=== PATIENT | male | born 1990 | race American Indian/Alaskan Native ===

== ENCOUNTER 2018-03-06 08:05 | Outpatient (CLI) | payer MEDICARE ==
[2018-03-06] MEDS ORDERED: XYLOCAINE TOPICAL 4% TP ONE (10:13)
== END 2018-03-06 08:06 | disposition home or self-care (01) ==
LOC: WOUND 08:05
PROVIDERS: ATTEND Surgery
DX: T81.89XA Other complications of procedures, not elsewhere classified, initial encounter (principal); E11.621 Type 2 diabetes mellitus with foot ulcer; L97.522 Non-pressure chronic ulcer of other part of left foot with fat layer exposed; Y83.8 Other surgical procedures as the cause of abnormal reaction of the patient, or of later complication, without mention of misadventure at the time of the procedure; Y92.89 Other specified places as the place of occurrence of the external cause
CPT/HCPCS: 11042; 11045; 97605; G0463

== ENCOUNTER 2018-03-11 08:39 | Outpatient (CLI) | payer MEDICARE ==
[2018-03-11 09:52] LABS: Blood Urea Nitrogen 13 mg/dL (9-20)
--- NOTE | 2018-03-11 15:32 | Magnetic Resonance Report ---
MR LOWER EXTREMITY NON-JOINT LEFT WITHOUT CONTRAST HISTORY: Non-pressure chronic ulcer of other part of left foot. TECHNIQUE: Multisequence, multiplanar MRI without IV gadolinium. FINDINGS: There is abnormal bone marrow edema and decreased T1 signal in the distal metatarsals 3, 4 and 5. Abnormal signal is also identified in the proximal phalanxes of toes 3 and 5. These findings are suggestive of osteomyelitis. The remaining bony structures are unremarkable. There is mild nonspecific edema throughout the muscles of the left foot and subcutaneous tissues on the dorsum of the foot consistent with myositis and cellulitis. No focal abscess is appreciated on noncontrast MRI. The musculotendinous structures and plantar fascia are grossly intact. IMPRESSION: Findings suspicious for osteomyelitis of distal metatarsals 3, 4 and 5 and toes 3 and 5. Cellulitis. Myositis. No focal abscess is identified.
--- NOTE | 2018-03-12 10:19 | Vascular Lab Report ---
LOWER EXTREMITY ARTERIAL DUPLEX: REASON FOR EXAM: Chronic left foot ulcer. COMMENTS ON THE RIGHT: Triphasic waveforms are seen proximally. Triphasic waveforms are seen distally. No significant velocity gradients are identified. No significant plaque is identified. Findings are consistent with normal perfusion. Findings are consistent with the ability to heal distal wounds. COMMENTS ON THE LEFT: Triphasic waveforms are seen proximally. Monophasic waveforms are seen distally. No significant velocity gradients are identified. No significant plaque is identified. Findings are consistent with mildly abnormal perfusion. Findings are potentially inconsistent with the ability to heal distal wounds. IMPRESSION: RIGHT: Essentially normal arterial flow. LEFT:Monophasic flow seen in the distal tibial vessels. Consider further evaluation.
== END 2018-03-11 08:40 | disposition home or self-care (01) ==
LOC: VAS 08:39
PROVIDERS: ATTEND Surgery
DX: E11.621 Type 2 diabetes mellitus with foot ulcer (principal); L97.522 Non-pressure chronic ulcer of other part of left foot with fat layer exposed; I12.0 Hypertensive chronic kidney disease with stage 5 chronic kidney disease or end stage renal disease; E11.22 Type 2 diabetes mellitus with diabetic chronic kidney disease; N18.6 End stage renal disease; M60.872 Other myositis, left ankle and foot; I25.10 Atherosclerotic heart disease of native coronary artery without angina pectoris; J44.9 Chronic obstructive pulmonary disease, unspecified; G47.30 Sleep apnea, unspecified; K21.9 Gastro-esophageal reflux disease without esophagitis; E66.9 Obesity, unspecified; Z95.0 Presence of cardiac pacemaker
CPT/HCPCS: 36415; 82565; 84520; 93925

== ENCOUNTER 2018-03-15 09:04 | Outpatient (CLI) | payer MEDICARE ==
[2018-03-15] MEDS ORDERED: XYLOCAINE TOPICAL 4% TP ONE ×2 (09:20→10:14)
[2018-03-15] MEDS ORDERED: SILVER NITRATE TP ONE (10:25)
[2018-03-18] MEDS ORDERED: SILVER NITRATE TP ONE (15:41)
== END 2018-03-15 09:05 | disposition home or self-care (01) ==
LOC: WOUND 09:04
PROVIDERS: ATTEND Surgery
DX: T81.89XD Other complications of procedures, not elsewhere classified, subsequent encounter (principal); E11.621 Type 2 diabetes mellitus with foot ulcer; L97.511 Non-pressure chronic ulcer of other part of right foot limited to breakdown of skin; L97.522 Non-pressure chronic ulcer of other part of left foot with fat layer exposed; Y83.8 Other surgical procedures as the cause of abnormal reaction of the patient, or of later complication, without mention of misadventure at the time of the procedure
CPT/HCPCS: 82962; 97605

== ENCOUNTER 2018-04-05 13:01 | Outpatient (CLI) | payer MEDICARE ==
[2018-04-05] MEDS ORDERED: XYLOCAINE TOPICAL 4% TP ONE (13:50)
== END 2018-04-05 13:02 | disposition home or self-care (01) ==
LOC: WOUND 13:01
PROVIDERS: ATTEND Surgery
DX: T81.89XD Other complications of procedures, not elsewhere classified, subsequent encounter (principal); E11.621 Type 2 diabetes mellitus with foot ulcer; L97.511 Non-pressure chronic ulcer of other part of right foot limited to breakdown of skin; L97.522 Non-pressure chronic ulcer of other part of left foot with fat layer exposed; Y83.8 Other surgical procedures as the cause of abnormal reaction of the patient, or of later complication, without mention of misadventure at the time of the procedure
CPT/HCPCS: 82962

== ENCOUNTER → 2018-04-24 | Outpatient (CLI) | payer MEDICARE ==
[~2018-04-24] MED LIST: XYLOCAINE TOPICAL 4% TP ONE
== END | disposition home or self-care (01) ==
LOC: WOUND 08:18
PROVIDERS: ATTEND Surgery
DX: T81.89XD Other complications of procedures, not elsewhere classified, subsequent encounter (principal); E11.621 Type 2 diabetes mellitus with foot ulcer; L97.522 Non-pressure chronic ulcer of other part of left foot with fat layer exposed; Y83.8 Other surgical procedures as the cause of abnormal reaction of the patient, or of later complication, without mention of misadventure at the time of the procedure

== ENCOUNTER 2018-12-17 16:11 | Inpatient (IN) | payer MEDICARE ==
[2018-12-17] MEDS ORDERED: NACL 0.9% 1000 ML IV ONE (17:41)
[2018-12-17] MEDS ORDERED: VANCOMYCIN 2,000 MG in NACL 0.9% 500 ML 500 ML IV ONE (17:41)
--- NOTE | 2018-12-17 17:57 | Emergency Department Report ---
ED General Adult HPI - General Chief complaint: Hyperglycemia Stated complaint: HIGH BLOOD SUGAR Time Seen by Provider: 12/17/18 17:25 Source: patient, EMS (ems notes not available at time of chart dictation), RN notes reviewed, old records reviewed Mode of arrival: Stretcher Limitations: Physical Limitation - History of Present Illness Initial comments: This is a 28-year-old gentleman. The patient is not known to this provider previously. Patient has a past medical history of diabetes, chronic bilateral feet wounds, MRI confirmed osteomyelitis of the left foot, from Summer 2017, reportedly supposed to be on multiple insulins and metformin, but currently is not taking his medications. Patient presents to the emergency room with a complaint of left foot pain, redness, swelling and discharge. The symptoms haven't present for 2 months. They are constant. They do not radiate anywhere. I do not have exacerbating or relieving factors. Positive subjective chills, no documented fevers, currently, no headache, neck pain, chest pain, abdominal pain or short of breath. He is not quite sure why he came in today. He was supposed to follow up with outpatient wound care and general surgery, Dr. Donnelly, but he reports that he has not followed up since the summer. He denies urinary symptoms, but reports that he is quite thirsty. -: Gradual, month(s) Location: left, lower extremity Radiation: non-radiation Severity scale (0 -10): 0 (patient denies physical pain at this time) Consistency: constant Improves with: none Worsens with: none - Related Data Previous Rx's Medication Instructions Recorded Last Taken Type Amoxicillin/Potassium Clav 1 each PO BID 14 Days tablet 03/01/18 Unknown Rx [Augmentin 875-125 Tablet] HYDROcodone/APAP 5-325 [[place] 1 each PO Q6H PRN #12 tablet 03/01/18 Unknown Rx 5-325 mg TAB] Insulin Glargine [Lantus VIAL] 16 units SUB-Q QHS #1 vial 03/01/18 Unknown Rx Allergies Allergy/AdvReac Type Severity Reaction Status Date / Time No Known Allergies Allergy Unverified 02/24/18 18:11 ED Review of Systems ROS: Stated complaint: HIGH BLOOD SUGAR Other details as noted in HPI Constitutional: chills. denies: fever Eyes: denies: eye discharge ENT: denies: epistaxis Respiratory: denies: cough Cardiovascular: denies: chest pain Endocrine: increased thirst Gastrointestinal: denies: abdominal pain Genitourinary: denies: dysuria Musculoskeletal: joint swelling, arthralgia, myalgia Skin: rash, change in color. denies: lesions Neurological: weakness Psychiatric: anxiety ED Past Medical Hx - Past Medical History Previous Medical History?: Yes Hx Hypertension: Yes Hx CVA: No Hx Heart Attack/AMI: No Hx Congestive Heart Failure: No Hx Diabetes: Yes Hx Deep Vein Thrombosis: No Hx Pulmonary Embolism: No Hx GERD: No Hx Liver Disease: No Hx Renal Disease: No Hx of Cancer: No Hx Sickle Cell Disease: No Hx Arthritis: No Hx Headaches / Migraines: No Hx Seizures: No Hx Kidney Stones: No Hx Psychiatric Treatment: No Hx Asthma: No Hx COPD: No Hx Tuberculosis: No Hx Dementia: No Hx HIV: No Additional medical history: left lower leg wounds - Surgical History Past Surgical History?: Yes Hx Coronary Stent: No Hx Open Heart Surgery: No Hx Pacemaker: No Hx Internal Defibrillator: No Hx Cholecystectomy: No Hx Appendectomy: No Hx Breast Surgery: No Additional Surgical History: skin debridement - Social History Smoking Status: Never Smoker Substance Use Type: None - Medications Home Medications: Home Medications Medication Instructions Recorded Confirmed Last Taken Type Amoxicillin/Potassium Clav 1 each PO BID 14 Days tablet 03/01/18 Unknown Rx [Augmentin 875-125 Tablet] HYDROcodone/APAP 5-325 [[place] 1 each PO Q6H PRN #12 tablet 03/01/18 Unknown Rx 5-325 mg TAB] Insulin Glargine [Lantus VIAL] 16 units SUB-Q QHS #1 vial 03/01/18 Unknown Rx ED Physical Exam - General Limitations: No Limitations General appearance: alert, in no apparent distress - Head Head exam: Present: atraumatic, normocephalic - Eye Eye exam: Present: normal appearance - ENT ENT exam: Present: normal exam, normal orophraynx, mucous membranes dry, normal external ear exam - Neck Neck exam: Present: normal inspection, full ROM. Absent: tenderness, me ningismus - Respiratory Respiratory exam: Present: normal lung sounds bilaterally. Absent: respiratory distress - Cardiovascular Cardiovascular Exam: Present: normal rhythm, tachycardia, normal heart sounds. Absent: systolic murmur, diastolic murmur, rubs, gallop - GI/Abdominal GI/Abdominal exam: Present: soft. Absent: distended, tenderness, guarding, rebound, rigid, pulsatile mass - Rectal Rectal exam: Present: deferred - Extremities Exam Extremities exam: Present: full ROM (there is an ulcerated lesion noted on the plantar aspect of the right great toe. There is left toe redness, streaking, w armth, and puslike discharge. No crepitus is appreciated.), other (2+ pulses noted in the bilateral upper, lower extremities. Compartments soft. No long bony tenderness. The pelvis is stable.). Absent: pedal edema, calf tenderness - Back Exam Back exam: Present: normal inspection, full ROM. Absent: paraspinal tenderness, vertebral tenderness - Neurological Exam Neurological exam: Present: alert, other (Extraocular movements intact. Tongue midline. No facial droop. Facial sensation intact to light touch in the V1, V2, V3 distribution bilaterally. 5 and 5 strength in 4 extremities.. Sensation is intact to light touch in 4 extremities.). Absent: motor sensory deficit - Psychiatric Psychiatric exam: Present: anxious - Skin Skin exam: Present: warm, rash, erythema ED Course Vital Signs 12/17/18 12/17/18 12/17/18 16:29 16:45 18:41 Temperature 98.1 F Pulse Rate 98 H 97 H Respiratory 21 15 18 Rate Blood Pressure 120/79 120/79 Blood Pressure 120/79 [Right] O2 Sat by Pulse 99 99 98 Oximetry 12/17/18 12/17/18 12/17/18 18:45 18:46 19:00 Temperature Pulse Rate 93 H 98 H 97 H Respiratory 17 14 19 Rate Blood Pressure 146/87 136/87 Blood Pressure 146/87 [Right] O2 Sat by Pulse 97 99 98 Oximetry - Consultations Consultation #1: 12/17/18 19:56 Dr. Strauss, ICU physician, is agreeable to placement to the intensive care unit. ED Medical Decision Making - Lab Data Result diagrams: 12/17/18 17:57 12/17/18 20:11 Vital Signs 12/17/18 12/17/18 12/17/18 16:29 16:45 18:41 Temperature 98.1 F Pulse Rate 98 H 97 H Respiratory 21 15 18 Rate Blood Pressure 120/79 120/79 Blood Pressure 120/79 [Right] O2 Sat by Pulse 99 99 98 Oximetry 12/17/18 12/17/18 12/17/18 18:45 18:46 19:00 Temperature Pulse Rate 93 H 98 H 97 H Respiratory 17 14 19 Rate Blood Pressure 146/87 136/87 Blood Pressure 146/87 [Right] O2 Sat by Pulse 97 99 98 Oximetry Lab Results 12/17/18 12/17/18 12/17/18 Range/Units 16:49 17:57 17:57 WBC 8.4 (4.5-11.0) K/mm3 RBC 3.71 (3.65-5.03) M/mm3 Hgb 9.3 L (11.8-15.2) gm/dl Hct 28.8 L (35.5-45.6) % MCV 78 L (84-94) fl MCH 25 L (28-32) pg MCHC 32 (32-34) % RDW 13.0 L (13.2-15.2) % Plt Count 753 H (140-440) K/mm3 Lymph % (Auto) 18.0 (13.4-35.0) % [place] % (Auto) 5.7 (0.0-7.3) % Eos % (Auto) 1.0 (0.0-4.3) % Baso % (Auto) 1.1 (0.0-1.8) % Lymph # 1.5 (1.2-5.4) K/mm3 [place] # 0.5 (0.0-0.8) K/mm3 Eos # 0.1 (0.0-0.4) K/mm3 Baso # 0.1 (0.0-0.1) K/mm3 Seg Neutrophils % 74.2 H (40.0-70.0) % Seg Neutrophils # 6.3 (1.8-7.7) K/mm3 ESR 74 (0-20) mm/Hr PT 13.3 (12.2-14.9) Sec. INR 0.95 (0.87-1.13) APTT 35.4 (24.2-36.6) Sec. Sodium (137-145) mmol/L Potassium (3.6-5.0) mmol/L Chloride (98-107) mmol/L Carbon Dioxide (22-30) mmol/L Anion Gap mmol/L BUN (9-20) mg/dL Creatinine (0.8-1.5) mg/dL Estimated GFR ml/min BUN/Creatinine Ratio % Glucose (75-100) mg/dL POC Glucose > 500 H (70-105) Lactic Acid (0.7-2.0) mmol/L Calcium (8.4-10.2) mg/dL Magnesium (1.7-2.3) mg/dL Total Bilirubin (0.1-1.2) mg/dL AST (5-40) units/L ALT (7-56) units/L Alkaline Phosphatase (35-129) units/L Total Creatine Kinase (55-170) units/L C-Reactive Protein (0.00-1.30) mg/dL Total Protein (6.3-8.2) g/dL Albumin (3.9-5) g/dL Albumin/Globulin Ratio % 12/17/18 12/17/18 12/17/18 Range/Units 17:57 17:57 17:57 WBC (4.5-11.0) K/mm3 RBC (3.65-5.03) M/mm3 Hgb (11.8-15.2) gm/dl Hct (35.5-45.6) % MCV (84-94) fl MCH (28-32) pg MCHC (32-34) % RDW (13.2-15.2) % Plt Count (140-440) K/mm3 Lymph % (Auto) (13.4-35.0) % [place] % (Auto) (0.0-7.3) % Eos % (Auto) (0.0-4.3) % Baso % (Auto) (0.0-1.8) % Lymph # (1.2-5.4) K/mm3 [place] # (0.0-0.8) K/mm3 Eos # (0.0-0.4) K/mm3 Baso # (0.0-0.1) K/mm3 Seg Neutrophils % (40.0-70.0) % Seg Neutrophils # (1.8-7.7) K/mm3 ESR (0-20) mm/Hr PT (12.2-14.9) Sec. INR (0.87-1.13) APTT (24.2-36.6) Sec. Sodium 130 L (137-145) mmol/L Potassium 4.9 (3.6-5.0) mmol/L Chloride 89.3 L (98-107) mmol/L Carbon Dioxide 29 (22-30) mmol/L Anion Gap 17 mmol/L BUN 34 H (9-20) mg/dL Creatinine 2.1 H (0.8-1.5) mg/dL Estimated GFR 45 ml/min BUN/Creatinine Ratio 16 % Glucose 578 H* (75-100) mg/dL POC Glucose (70-105) Lactic Acid 0.80 (0.7-2.0) mmol/L Calcium 9.2 (8.4-10.2) mg/dL Magnesium 2.00 (1.7-2.3) mg/dL Total Bilirubin 0.20 (0.1-1.2) mg/dL AST 9 (5-40) units/L ALT 8 (7-56) units/L Alkaline Phosphatase 101 (35-129) units/L Total Creatine Kinase 52 L (55-170) units/L C-Reactive Protein 16.20 H (0.00-1.30) mg/dL Total Protein 8.8 H (6.3-8.2) g/dL Albumin 2.7 L (3.9-5) g/dL Albumin/Globulin Ratio 0.4 % - Radiology Data Radiology results: pending, report reviewed Print Report Referring Physician: LISA ROMERO Patient Name: SHABBIR VELÁZQUEZ Date of : 1990 Sex: Male Report Date: 2018-12-17 Report Status: [place] [address] Cat Scan Report Signed Patient: SHABBIR VELÁZQUEZ MR#: [id number] : 1990 Acct:[id number] Age/Sex: 28 / M ADM Date: 12/17/18 Loc: CC1 [id number]: ETELVINA CHAVEZ MD Ordering Physician: LISA ROMERO MD Date of Service: 12/17/18 Procedure(s): CT lower extremity LT wo con Accession Num sarah beth(s): [id number] cc: LISA ROMERO MD PROCEDURE: CT LOWER EXTREMITY LT WO CON HISTORY: left foot cellulitis ingection FINDINGS: Unenhanced CT of the left foot and ankle and more acquired. Data was reformatted into the sagittal and coronal planes. On the left, there is subcutaneous stranding of the soft tissues of the left ankle and dorsum of the left foot, consistent with cellulitis. No abscess is seen. There is destruction of the left first distal phalanx and erosion of the distal aspect of the first proximal phalanx, consistent with osteomyelitis. No evidence of cellulitis or osteomyelitis is seen in the right foot or right ankle. IMPRESSION: Osteomyelitis of first distal phalanx and of the distal aspect of the left first proximal phalanx Cellulitis of left ankle and left foot No evidence of cellulitis or osteomyelitis is seen in the right foot This document is electronically signed by See Cooney MD., December 17 2018 08:54:57 PM ET Transcribed By: JAZMINE Dictated By: SEE COONEY MD Electronically Authenticated By: SEE COONEY MD Signed Date/Time: 12/17/182056 DD/ 17 TD/TT: 12/17/182017 - Medical Decision Making Differential diagnoses, including not limited to: Diabetic ketoacidosis, hyperos molar state, dehydration, cellulitis, osteomyelitis, myositis, medication noncompliance, renal insufficiency Assessment and plan: 36-year-old gentleman with sugar of almost 600, acute renal insufficiency, left great foot, toe redness, warmth, discharge, outpatient history of MRI confirmed osteomyelitis, noncompliant with follow-up, noncompliant with diabetic medications. We will resuscitate the patient according to the sepsis pathway empirically. He will be given appropriate antibiotics. Blood cultures will be obtained. Wound care consult has been obtained at the request of the consulting general surgeon, Dr. Donnelly, who agrees to follow in consultation. He will be given insulin and fluids for his hyperglycemia. May have pseudohyponatremia, secondary to hyperglycemia, corrected sodium [id number] according to calc, corrected anion gap, is 23, accounting for albumin Venous pH will be ordered. Case is presented to the Hospital physician, Dr. Stephy Ga, who accepts on behalf of Dr CHAVEZ Critical Care Time: Yes Critical care time in (mins) excluding proc time.: 45 Critical care attestation.: If time is entered above; I have spent that time in minutes in the direct care of this critically ill patient, excluding procedure time. ED Disposition Clinical Impression: Cellulitis of foot, left, DKA (diabetic ketoacidoses), GERHARD (acute kidney injury) Disposition: DC-09 OP ADMIT IP TO THIS HOSP Is pt being admited?: Yes Condition: Serious
[2018-12-17] MEDS ORDERED: VANCOMYCIN PHARMACY TO DOSE IV SCH (18:00)
[2018-12-17] MEDS ORDERED: ZOSYN/NS 4.5GM/100ML 4.5 GM/100 ML VIAL IV SCH (18:00)
[2018-12-17 18:28] LABS: Basophils # (Auto) 0.1 K/mm3 (0.0-0.1); Basophils % (Auto) 1.1 % (0.0-1.8); Eosinophils # (Auto) 0.1 K/mm3 (0.0-0.4); Hematocrit 28.8 % (35.5-45.6); Hemoglobin 9.3 gm/dl (11.8-15.2); Lymphocytes # (Auto) 1.5 K/mm3 (1.2-5.4); Mean Corpuscular HGB Conc 32 % (32-34); Mean Corpuscular Volume 78 fl (84-94); Monocytes # (Auto) 0.5 K/mm3 (0.0-0.8); Monocytes % (Auto) 5.7 % (0.0-7.3); Platelet Count 753 K/mm3 (140-440); Red Blood Count 3.71 M/mm3 (3.65-5.03)
[2018-12-17 18:36] LABS: INR 0.95 (0.87-1.13)
[2018-12-17 18:37] LABS: Partial Thromboplastin Time 35.4 Sec. (24.2-36.6)
[2018-12-17 18:41] LABS: Albumin 2.7 g/dL (3.9-5); Calcium 9.2 mg/dL (8.4-10.2)
[2018-12-17 18:43] LABS: C-Reactive Protein 16.2 mg/dL (0.00-1.30)
[2018-12-17] MEDS ORDERED: HumuLIN R IV ONE (18:48)
[2018-12-17 18:49] LABS: Erythrocyte Sedimentation Rate 74 mm/Hr (0-20)
[2018-12-17] MEDS ORDERED: ZOSYN/NS 4.5GM/100ML 4.5 GM/100 ML VIAL IV ONE (19:00)
[2018-12-17] MEDS ORDERED: D50W (25GM) Syringe IV PRN (19:49)
[2018-12-17] MEDS ORDERED: D5W/0.45% NACL/KCL 20 MEQ 20 MEQ/1,000 ML BAG IV SCH (20:00)
[2018-12-17] MEDS ORDERED: SODIUM CHLORIDE FLUSH SYRINGE 10 ML IV NR (20:00)
[2018-12-17] MEDS ORDERED: HumuLIN R 100 UNITS in NACL 0.9% 99 ML IV SCH (20:30)
[2018-12-17 20:52] LABS: Calcium 8.9 mg/dL (8.4-10.2)
--- NOTE | 2018-12-17 20:57 | Cat Scan Report ---
PROCEDURE: CT LOWER EXTREMITY LT WO CON HISTORY: left foot cellulitis ingection FINDINGS: Unenhanced CT of the left foot and ankle and more acquired. Data was reformatted into the s agittal and coronal planes. On the left, there is subcutaneous stranding of the soft tissues of the left ankle and dorsum of the left foot, consistent with cellulitis. No abscess is seen. There is destruction of the left first distal phalanx and erosion of the distal aspect of the first p roximal phalanx, consistent with osteomyelitis. No evidence of cellulitis or osteomyelitis is seen in the right foot or right ankle. IMPRESSION: Osteomyelitis of first distal phalanx and of the distal aspect of the left first proximal phalanx Cellulitis of left ankle and left foot No evidence of cellulitis or osteomyelitis is seen in the right foot This document is electronically signed by See Cooney MD., December 17 2018 08:54:57 PM ET
[2018-12-17 21:25] LABS: Bacteria,Urine 1+ /HPF (Negative); Bilirubin,Urine NEG (Negative); Blood,Urine MOD (Negative); Color,Urine Yellow (Yellow); Mucus,Urine FEW /HPF; Urobilinogen,Urine < 2.0 mg/dL (<2.0)
[2018-12-17] MEDS ORDERED: MORPHINE IV PRN (22:26)
[2018-12-17] MEDS ORDERED: ZOFRAN IV PRN (22:26)
[2018-12-17] MEDS ORDERED: TYLENOL PO PRN (22:26)
[2018-12-17] MEDS ORDERED: SODIUM CHLORIDE FLUSH SYRINGE 10 ML IV PRN (22:26)
[2018-12-17] MEDS ORDERED: NORCO 5/325 PO PRN (22:26)
[2018-12-17] MEDS: LANTUS SUB-Q SCH (22:54)
--- NOTE | 2018-12-17 23:01 | History and Physical Report ---
History of Present Illness Date of examination: 12/17/18 Date of admission: 12/17/18 19:51 Chief complaint: Worsening left foot ulcer History of present illness: Patient is a 28-year-old -[place] male with history of diabetes mellitus type 2 and left foot osteomyelitis, who presented to the ED on account of 2 months history of worsening left foot ulcer with drainage. He has associated redness, swelling and numbness with pain. He also has positive history of chills without fever. He denies shortness of breath, chest pain, palpitation, sore throat, runny nose or congestion, cough, orthopnea or PND. No headaches, nausea, vomiting, lightheadedness, syncope or loss of consciousness. No abdominal pain, constipation, diarrhea, dysuria or frequency. Patient admits to being off his insulin for about 6 months. Past History Past Medical History: diabetes, other (left foot osteomyelitis) Past Surgical History: Other (left foot surgery) Social history: other (he admits to occasional alcohol use. He denies tobacco or illicit drug use) Family history: diabetes (Mother) Medications and Allergies Allergies Allergy/AdvReac Type Severity Reaction Status Date / Time No Known Allergies Allergy Unverified 02/24/18 18:11 Home Medications Medication Instructions Recorded Confirmed Last Taken Type Amoxicillin/Potassium Clav 1 each PO BID 14 Days tablet 03/01/18 Unknown Rx [Augmentin 875-125 Tablet] HYDROcodone/APAP 5-325 [[address] 1 each PO Q6H PRN #12 tablet 03/01/18 Unknown Rx 5-325 mg TAB] Insulin Glargine [Lantus VIAL] 16 units SUB-Q QHS #1 vial 03/01/18 Unknown Rx Amoxicillin/K Clav Tab [Augmentin 1 tab PO Q12HR 12/17/18 12/17/18 Unknown History 875 mg] HYDROcodone/APAP 5-325 [[address] 1 each PO Q6HR PRN 12/17/18 12/17/18 Unknown History 5/325] Insulin Aspart [Novolog] 20 units SQ TID 12/17/18 12/17/18 Unknown History Insulin Glargine,Hum.rec.anlog 20 unit SQ QDAY 12/17/18 12/17/18 Unknown History [Basaglar Kwikpen U-100] Metformin HCl [Fortamet ER] 1,000 mg PO QDAY 12/17/18 12/17/18 Unknown History Active Meds: Active Medications Acetaminophen (Tylenol) 650 mg PO Q4H PRN PRN Reason: Pain MILD(1-3)/Fever >100.5/[place]ILSON Acetaminophen/Hydrocodone Bitart ([address] 5/325) 2 each PO Q6H PRN PRN Reason: Pain, Moderate (4-6) Dextrose (D50w (25gm) Syringe) 0 ml IV PRN PRN PRN Reason: Hypoglycemia Vancomycin HCl 2,000 mg/ (Sodium Chloride) 540 mls @ 250 mls/hr IV Q12H HUYEN Piperacillin Sod/Tazobactam Sod (Zosyn/Ns 4.5gm/100ml) 4.5 gm in 100 mls @ 200 mls/hr IV Q8H HUYEN Sodium Chloride (Nacl 0.9% 1000 Ml) 1,000 mls @ 125 mls/hr IV DIRECT HUYEN Insulin Glargine (Lantus) 25 units SUB-Q BID HUYEN Last Admin: 12/17/18 22:54 Dose: 25 units Documented by: Insulin Human Lispro (Humalog) 0 unit SUB-Q ACHS HUYEN; Protocol Morphine Sulfate (Morphine) 2 mg IV Q4H PRN PRN Reason: Pain, Moderate (4-6) Ondansetron HCl (Zofran) 4 mg IV Q8H PRN PRN Reason: Nausea And Vomiting Sodium Chloride (Sodium Chloride Flush Syringe 10 Ml) 10 ml IV PRN NR Stop: 12/18/18 19:59 Sodium Chloride (Sodium Chloride Flush Syringe 10 Ml) 10 ml IV BID HUYEN Review of Systems All systems: negative (except as documented in the HPI, all other systems were reviewed and negative) Exam - Constitutional Vitals: Temp Pulse Resp BP Pulse Ox 98.1 F 93 H 15 160/87 97 12/17/18 16:29 12/17/18 22:31 12/17/18 22:31 12/17/18 22:31 12/17/18 22:31 General appearance: Present: no acute distress, obese - EENT Eyes: Present: PERRL, EOM intact ENT: hearing intact, clear oral mucosa - Neck Neck: Present: supple, normal ROM - Respiratory Respiratory effort: normal Respiratory: bilateral: CTA - Cardiovascular Rhythm: regular Heart Sounds: Present: S1 & S2. Absent: rub, click - Extremities Extremity abnormal: edema (in left foot draining ulcer around the left big toe) - Abdominal General gastrointestinal: Present: soft, non-tender, non-distended, normal bowel sounds Male genitourinary: Present: deferred - Integumentary Integumentary: Present: erythema (with draining ulcer in the left foot) - Musculoskeletal Musculoskeletal: gait normal, strength equal bilaterally - Psychiatric Psychiatric: appropriate mood/affect, intact judgment & insight - Neurologic Neurologic: CNII-XII intact, moves all extremities Results - Labs CBC & Chem 7: 12/17/18 17:57 12/17/18 20:11 Labs: Laboratory Last Values WBC 8.4 K/mm3 (4.5-11.0) 12/17/18 17:57 RBC 3.71 M/mm3 (3.65-5.03) 12/17/18 17:57 Hgb 9.3 gm/dl (11.8-15.2) L 12/17/18 17:57 Hct 28.8 % (35.5-45.6) L 12/17/18 17:57 MCV 78 fl (84-94) L 12/17/18 17:57 MCH 25 pg (28-32) L 12/17/18 17:57 MCHC 32 % (32-34) 12/17/18 17:57 RDW 13.0 % (13.2-15.2) L 12/17/18 17:57 Plt Count 753 K/mm3 (140-440) H 12/17/18 17:57 Lymph % (Auto) 18.0 % (13.4-35.0) 12/17/18 17:57 [place] % (Auto) 5.7 % (0.0-7.3) 12/17/18 17:57 Eos % (Auto) 1.0 % (0.0-4.3) 12/17/18 17:57 Baso % (Auto) 1.1 % (0.0-1.8) 12/17/18 17:57 Lymph # 1.5 K/mm3 (1.2-5.4) 12/17/18 17:57 [place] # 0.5 K/mm3 (0.0-0.8) 12/17/18 17:57 Eos # 0.1 K/mm3 (0.0-0.4) 12/17/18 17:57 Baso # 0.1 K/mm3 (0.0-0.1) 12/17/18 17:57 Seg Neutrophils % 74.2 % (40.0-70.0) H 12/17/18 17:57 Seg Neutrophils # 6.3 K/mm3 (1.8-7.7) 12/17/18 17:57 ESR 74 mm/Hr (0-20) 12/17/18 17:57 PT 13.3 Sec. (12.2-14.9) 12/17/18 17:57 INR 0.95 (0.87-1.13) 12/17/18 17:57 APTT 35.4 Sec. (24.2-36.6) 12/17/18 17:57 VBG pH 7.332 (7.320-7.420) 12/17/18 20:17 Sodium 135 mmol/L (137-145) L 12/17/18 20:11 Potassium 4.2 mmol/L (3.6-5.0) 12/17/18 20:11 Chloride 95.7 mmol/L (98-107) L 12/17/18 20:11 Carbon Dioxide 27 mmol/L (22-30) 12/17/18 20:11 Anion Gap 17 mmol/L 12/17/18 20:11 BUN 32 mg/dL (9-20) H 12/17/18 20:11 Creatinine 2.0 mg/dL (0.8-1.5) H 12/17/18 20:11 Estimated GFR 48 ml/min 12/17/18 20:11 BUN/Creatinine Ratio 16 % 12/17/18 20:11 Glucose 255 mg/dL (75-100) H 12/17/18 20:11 POC Glucose 228 (70-105) H 12/17/18 22:43 Hemoglobin A1c 16.4 % (4-6) H 12/17/18 20:17 Lactic Acid 1.50 mmol/L (0.7-2.0) 12/17/18 20:17 Calcium 8.9 mg/dL (8.4-10.2) 12/17/18 20:11 Phosphorus 4.00 mg/dL (2.5-4.5) 12/17/18 20:17 Magnesium 2.00 mg/dL (1.7-2.3) 12/17/18 17:57 Total Bilirubin 0.20 mg/dL (0.1-1.2) 12/17/18 17:57 AST 9 units/L (5-40) 12/17/18 17:57 ALT 8 units/L (7-56) 12/17/18 17:57 Alkaline Phosphatase 101 units/L (35-129) 12/17/18 17:57 Total Creatine Kinase 52 units/L (55-170) L 12/17/18 17:57 C-Reactive Protein 16.20 mg/dL (0.00-1.30) H 12/17/18 17:57 Total Protein 8.8 g/dL (6.3-8.2) H 12/17/18 17:57 Albumin 2.7 g/dL (3.9-5) L 12/17/18 17:57 Albumin/Globulin Ratio 0.4 % 12/17/18 17:57 Urine Color Yellow (Yellow) 12/17/18 21:04 Urine Turbidity Slightly-cloudy (Clear) 12/17/18 21:04 Urine pH 5.0 (5.0-7.0) 12/17/18 21:04 Ur Specific [place] 1.027 (1.003-1.030) 12/17/18 21:04 Urine Protein 100 mg/dl mg/dL (Negative) 12/17/18 21:04 Urine Glucose (UA) >=500 mg/dL (Negative) 12/17/18 21:04 Urine Ketones Neg mg/dL (Negative) 12/17/18 21:04 Urine Blood Mod (Negative) 12/17/18 21:04 Urine Nitrite Neg (Negative) 12/17/18 21:04 Urine Bilirubin Neg (Negative) 12/17/18 21:04 Urine Urobilinogen < 2.0 mg/dL (<2.0) 12/17/18 21:04 Ur Leukocyte Esterase Neg (Negative) 12/17/18 21:04 Urine WBC (Auto) 4.0 /HPF (0.0-6.0) 12/17/18 21:04 Urine RBC (Auto) 8.0 /HPF (0.0-6.0) 12/17/18 21:04 U Epithel Cells (Auto) 1.0 /HPF (0-13.0) 12/17/18 21:04 Urine Bacteria (Auto) 1+ /HPF (Negative) 12/17/18 21:04 Urine Mucus Few /HPF 12/17/18 21:04 Assessment and Plan Assessment and plan: Sepsis, probably secondary to diabetic left foot ulcer -On sepsis protocol -On IV vancomycin and Zosyn -Blood cultures pending HHS -On Lantus and SSI -HBA1C: 16.4 GERHARD, probably prerenal azotemia -On IV fluid, will monitor creatinine level Chronic osteomyelitis of left foot -Surgery consulted Medication noncompliance -Patient counseled DVT prophylaxis with heparin Disposition: For discharge when medically stable Time spent: 38 minutes
[2018-12-18] MEDS ORDERED: ZOSYN/NS 4.5GM/100ML 4.5 GM/100 ML VIAL IV ONE (01:43)
[2018-12-18] MEDS: ZOSYN/NS 4.5GM/100ML 4.5 GM/100 ML VIAL IV SCH ×3 (01:59→20:24)
[2018-12-18] MEDS ORDERED: HEPARIN ONE (06:03)
[2018-12-18] MEDS: HEPARIN SUB-Q SCH ×3 (06:08→22:42)
[2018-12-18 06:42] LABS: Calcium 8.7 mg/dL (8.4-10.2)
[2018-12-18] MEDS ORDERED: VANCOMYCIN 2,000 MG in NACL 0.9% 500 ML 500 ML IV SCH (07:30)
[2018-12-18] MEDS: HumaLOG SUB-Q SCH ×4 (08:30→22:51)
[2018-12-18] MEDS ORDERED: HumuLIN R ONE (08:36)
[2018-12-18] MEDS: NACL 0.9% 1000 ML 1,000 ML IV SCH ×2 (10:04→17:34)
[2018-12-18] MEDS: VANCOMYCIN 2,000 MG in NACL 0.9% 500 ML 500 ML IV SCH (10:05)
--- NOTE | 2018-12-18 11:13 | Progress Note ---
Assessment and Plan Assessment and plan: Left foot ulcer. Surgeon and ID Physician consulted Hyperglycemic hyperosmolar syndrome -On Lantus and SSI -HBA1C: 16.4 GERHARD due to vasomotor nephropathy Improving -On IV fluid, will monitor creatinine level Chronic osteomyelitis of left foot -Surgery consulted Medication noncompliance -Patient counseled DVT prophylaxis with heparin History Interval history: ulcer left foot pain left foot Hospitalist Physical - Constitutional Vitals: Temp Pulse Resp BP Pulse Ox 97.7 F 97 H 16 137/79 100 12/18/18 09:02 12/18/18 09:02 12/18/18 09:02 12/18/18 09:02 12/18/18 09:02 General appearance: Present: no acute distress - EENT Eyes: Present: PERRL - Neck Neck: Present: supple - Respiratory Respiratory effort: normal Respiratory: bilateral: CTA - Cardiovascular Rhythm: regular Heart Sounds: Present: S1 & S2 (S1 and s2 reg, no murmurs) - Extremities Extremity abnormal: other (left foot chronic ulcer) - Abdominal General gastrointestinal: soft, non-tender, non-distended, normal bowel sounds - Integumentary Integumentary: Present: clear, warm, dry - Psychiatric Psychiatric: appropriate mood/affect - Neurologic Neurologic: CNII-XII intact, moves all extremities Results - Labs CBC & Chem 7: 12/19/18 06:42 12/19/18 06:42 Labs: Laboratory Last Values WBC 8.4 K/mm3 (4.5-11.0) 12/17/18 17:57 RBC 3.71 M/mm3 (3.65-5.03) 12/17/18 17:57 Hgb 9.3 gm/dl (11.8-15.2) L 12/17/18 17:57 Hct 28.8 % (35.5-45.6) L 12/17/18 17:57 MCV 78 fl (84-94) L 12/17/18 17:57 MCH 25 pg (28-32) L 12/17/18 17:57 MCHC 32 % (32-34) 12/17/18 17:57 RDW 13.0 % (13.2-15.2) L 12/17/18 17:57 Plt Count 753 K/mm3 (140-440) H 12/17/18 17:57 Lymph % (Auto) 18.0 % (13.4-35.0) 12/17/18 17:57 [place] % (Auto) 5.7 % (0.0-7.3) 12/17/18 17:57 Eos % (Auto) 1.0 % (0.0-4.3) 12/17/18 17:57 Baso % (Auto) 1.1 % (0.0-1.8) 12/17/18 17:57 Lymph # 1.5 K/mm3 (1.2-5.4) 12/17/18 17:57 [place] # 0.5 K/mm3 (0.0-0.8) 12/17/18 17:57 Eos # 0.1 K/mm3 (0.0-0.4) 12/17/18 17:57 Baso # 0.1 K/mm3 (0.0-0.1) 12/17/18 17:57 Seg Neutrophils % 74.2 % (40.0-70.0) H 12/17/18 17:57 Seg Neutrophils # 6.3 K/mm3 (1.8-7.7) 12/17/18 17:57 ESR 74 mm/Hr (0-20) 12/17/18 17:57 PT 13.3 Sec. (12.2-14.9) 12/17/18 17:57 INR 0.95 (0.87-1.13) 12/17/18 17:57 APTT 35.4 Sec. (24.2-36.6) 12/17/18 17:57 VBG pH 7.332 (7.320-7.420) 12/17/18 20:17 Sodium 139 mmol/L (137-145) 12/18/18 05:39 Potassium 4.2 mmol/L (3.6-5.0) 12/18/18 05:39 Chloride 102.8 mmol/L (98-107) 12/18/18 05:39 Carbon Dioxide 25 mmol/L (22-30) 12/18/18 05:39 Anion Gap 15 mmol/L 12/18/18 05:39 BUN 25 mg/dL (9-20) H 12/18/18 05:39 Creatinine 1.7 mg/dL (0.8-1.5) H 12/18/18 05:39 Estimated GFR 58 ml/min 12/18/18 05:39 BUN/Creatinine Ratio 15 % 12/18/18 05:39 Glucose 174 mg/dL (75-100) H 12/18/18 05:39 POC Glucose 266 (70-105) H 12/18/18 11:07 Hemoglobin A1c 16.4 % (4-6) H 12/17/18 20:17 Lactic Acid 1.50 mmol/L (0.7-2.0) 12/17/18 20:17 Calcium 8.7 mg/dL (8.4-10.2) 12/18/18 05:39 Phosphorus 4.00 mg/dL (2.5-4.5) 12/17/18 20:17 Magnesium 2.00 mg/dL (1.7-2.3) 12/17/18 17:57 Total Bilirubin 0.20 mg/dL (0.1-1.2) 12/17/18 17:57 AST 9 units/L (5-40) 12/17/18 17:57 ALT 8 units/L (7-56) 12/17/18 17:57 Alkaline Phosphatase 101 units/L (35-129) 12/17/18 17:57 Total Creatine Kinase 52 units/L (55-170) L 12/17/18 17:57 C-Reactive Protein 16.20 mg/dL (0.00-1.30) H 12/17/18 17:57 Total Protein 8.8 g/dL (6.3-8.2) H 12/17/18 17:57 Albumin 2.7 g/dL (3.9-5) L 12/17/18 17:57 Albumin/Globulin Ratio 0.4 % 12/17/18 17:57 Urine Color Yellow (Yellow) 12/17/18 21:04 Urine Turbidity Slightly-cloudy (Clear) 12/17/18 21:04 Urine pH 5.0 (5.0-7.0) 12/17/18 21:04 Ur Specific [place] 1.027 (1.003-1.030) 12/17/18 21:04 Urine Protein 100 mg/dl mg/dL (Negative) 12/17/18 21:04 Urine Glucose (UA) >=500 mg/dL (Negative) 12/17/18 21:04 Urine Ketones Neg mg/dL (Negative) 12/17/18 21:04 Urine Blood Mod (Negative) 12/17/18 21:04 Urine Nitrite Neg (Negative) 12/17/18 21:04 Urine Bilirubin Neg (Negative) 12/17/18 21:04 Urine Urobilinogen < 2.0 mg/dL (<2.0) 12/17/18 21:04 Ur Leukocyte Esterase Neg (Negative) 12/17/18 21:04 Urine WBC (Auto) 4.0 /HPF (0.0-6.0) 12/17/18 21:04 Urine RBC (Auto) 8.0 /HPF (0.0-6.0) 12/17/18 21:04 U Epithel Cells (Auto) 1.0 /HPF (0-13.0) 12/17/18 21:04 Urine Bacteria (Auto) 1+ /HPF (Negative) 12/17/18 21:04 Urine Mucus Few /HPF 12/17/18 21:04 Active Medications - Current Medications Current Medications: Generic Name Dose Route Start Last Admin Trade Name Freq PRN Reason Stop Dose Admin Acetaminophen 650 mg 12/17/18 22:26 Tylenol PO Q4H PRN Pain MILD(1-3)/Fever >100.5/WILSON Acetaminophen/Hydrocodone Bitart 2 each 12/17/18 22:26 [place] 5/325 PO Q6H PRN Pain, Moderate (4-6) Dextrose 0 ml 12/17/18 19:49 D50w (25gm) Syringe IV PRN PRN Hypoglycemia Heparin Sodium (Porcine) 5,000 unit 12/18/18 06:00 12/18/18 06:08 Heparin SUB-Q 5,000 unit Q8HR HUYEN Administration Piperacillin Sod/Tazobactam Sod 4.5 gm in 100 mls @ 200 mls/hr 12/18/18 02:00 12/18/18 01:59 Zosyn/Ns 4.5gm/100ml IV 200 mls/hr Q8H HUYEN Administration Sodium Chloride 1,000 mls @ 125 mls/hr 12/17/18 23:00 12/18/18 10:04 Nacl 0.9% 1000 Ml IV 125 mls/hr DIRECT HUYEN Administration Vancomycin HCl 2,000 mg/ 540 mls @ 250 mls/hr 12/18/18 10:00 12/18/18 10:05 Sodium Chloride IV 250 mls/hr Q24HR HUYEN Administration Insulin Glargine 25 units 12/17/18 23:00 12/17/18 22:54 Lantus SUB-Q 25 units BID HUYEN Administration Insulin Human Lispro 0 unit 12/18/18 07:30 12/18/18 08:30 Humalog SUB-Q 2 unit ACHS HUYEN Administration Protocol Morphine Sulfate 2 mg 12/17/18 22:26 Morphine IV Q4H PRN Pain, Moderate (4-6) Ondansetron HCl 4 mg 12/17/18 22:26 Zofran IV Q8H PRN Nausea And Vomiting Sodium Chloride 10 ml 12/17/18 20:00 Sodium Chloride Flush Syringe 10 Ml IV 12/18/18 19:59 PRN NR Sodium Chloride 10 ml 12/18/18 10:00 Sodium Chloride Flush Syringe 10 Ml IV BID HUYEN
--- NOTE | 2018-12-18 14:21 | Consultation ---
History of Present Illness Consult date: 12/18/18 Chief complaint: Left DFU's - History of present illness History of present illness: 28 yo diabetic male with h/o DFU's and uncontrolled DM. He has been told in the past that he HAS TO get his DM under control. Asked to see re bilateral DFU's. Past History Past Medical History: diabetes, other (left foot osteomyelitis) Past Surgical History: Other (left foot surgery) Social history: other (he admits to occasional alcohol use. He denies tobacco or illicit drug use) Family history: diabetes (Mother) Medications and Allergies Allergies Allergy/AdvReac Type Severity Reaction Status Date / Time No Known Allergies Allergy Unverified 02/24/18 18:11 Home Medications Medication Instructions Recorded Confirmed Last Taken Type Amoxicillin/Potassium Clav 1 each PO BID 14 Days tablet 03/01/18 Unknown Rx [Augmentin 875-125 Tablet] HYDROcodone/APAP 5-325 [[place] 1 each PO Q6H PRN #12 tablet 03/01/18 Unknown Rx 5-325 mg TAB] Insulin Glargine [Lantus VIAL] 16 units SUB-Q QHS #1 vial 03/01/18 Unknown Rx Amoxicillin/K Clav Tab [Augmentin 1 tab PO Q12HR 12/17/18 12/17/18 Unknown History 875 mg] HYDROcodone/APAP 5-325 [[place] 1 each PO Q6HR PRN 12/17/18 12/17/18 Unknown History 5/325] Insulin Aspart [Novolog] 20 units SQ TID 12/17/18 12/17/18 Unknown History Insulin Glargine,Hum.rec.anlog 20 unit SQ QDAY 12/17/18 12/17/18 Unknown History [Basaglar Kwikpen U-100] Metformin HCl [Fortamet ER] 1,000 mg PO QDAY 12/17/18 12/17/18 Unknown History Active Meds: Active Medications Acetaminophen (Tylenol) 650 mg PO Q4H PRN PRN Reason: Pain MILD(1-3)/Fever >100.5/[place] Acetaminophen/Hydrocodone Bitart ([place] 5/325) 2 each PO Q6H PRN PRN Reason: Pain, Moderate (4-6) Dextrose (D50w (25gm) Syringe) 0 ml IV PRN PRN PRN Reason: Hypoglycemia Heparin Sodium (Porcine) (Heparin) 5,000 unit SUB-Q Q8HR [facility] Last Admin: 12/18/18 14:10 Dose: 5,000 unit Documented by: Piperacillin Sod/Tazobactam Sod (Zosyn/Ns 4.5gm/100ml) 4.5 gm in 100 mls @ 200 mls/hr IV Q8H [facility] Last Admin: 12/18/18 01:59 Dose: 200 mls/hr Documented by: Sodium Chloride (Nacl 0.9% 1000 Ml) 1,000 mls @ 125 mls/hr IV DIRECT [facility] Last Admin: 12/18/18 10:04 Dose: 125 mls/hr Documented by: Vancomycin HCl 2,000 mg/ (Sodium Chloride) 540 mls @ 250 mls/hr IV Q24HR [facility] Last Admin: 12/18/18 10:05 Dose: 250 mls/hr Documented by: Insulin Glargine (Lantus) 25 units SUB-Q BID [facility] Last Admin: 12/17/18 22:54 Dose: 25 units Documented by: Insulin Human Lispro (Humalog) 0 unit SUB-Q ACHS [facility]; Protocol Last Admin: 12/18/18 14:09 Dose: 4 unit Documented by: Morphine Sulfate (Morphine) 2 mg IV Q4H PRN PRN Reason: Pain, Moderate (4-6) Ondansetron HCl (Zofran) 4 mg IV Q8H PRN PRN Reason: Nausea And Vomiting Sodium Chloride (Sodium Chloride Flush Syringe 10 Ml) 10 ml IV PRN NR Stop: 12/18/18 19:59 Sodium Chloride (Sodium Chloride Flush Syringe 10 Ml) 10 ml IV BID [facility] Review of Systems All systems: negative (none) Exam Vital Signs Temp Pulse Resp BP Pulse Ox 98.1 F 98 H 21 120/79 99 12/17/18 16:29 12/17/18 16:29 12/17/18 16:29 12/17/18 16:29 12/17/18 16:29 - General physical appearance Positive: well developed, well nourished, no distress - Eyes Positive: PERRL, normal occular movement - ENT Positive: normal pinna, normal nares, normal mucosa, no hearing loss, no c ongestion - Neck Positive: no masses, no bruits, trachea midline, no venous distension - Respiratory Positive: normal expansion, normal respiratory effort, clear to auscultation - Cardiovascular Rhythm: regular Heart Sounds: Present: S1 & S2. Absent: rub, click - Extremities Extremities: no ischemia, pulses symmetrical, No edema (DP pulses are 2+ bilaterally. PT pulses are non-palpable bilaterally.) - Breasts Breasts: deferred - Abdomen Abdomen: Present: soft, bowel sounds normal. Absent: tender, distended Hernia: none - Genitourinary Male Genitourinary: deferred - Integumentary other (There is a 1 cm open wound/ulcer on the dorsum of the left great toe which is packed with a wick. There are quarter sized ulcerations on the tips of both great toes, both packed with Iodoform alejandro. There is also a quarter sized open wound on the plantar aspect of the left foot at the 3rd metatarsal head. The left great toe is moderately edematous. There is no significant drainage or cellulitis associated with any of the wounds.) - Neurologic Neurologic: alert and oriented to time, place and person, motor strength and sensation are grossly intact - Musculoskeletal normal gait, normal posture - Psychiatric Psychiatric: appropriate mood/affect, intact judgment & insight Results - Labs 12/17/18 17:57 12/18/18 05:39 Abnormal lab results 12/17/18 12/17/18 12/17/18 Range/Units 16:49 17:57 17:57 Hgb 9.3 L (11.8-15.2) gm/dl Hct 28.8 L (35.5-45.6) % MCV 78 L (84-94) fl MCH 25 L (28-32) pg RDW 13.0 L (13.2-15.2) % Plt Count 753 H (140-440) K/mm3 Seg Neutrophils % 74.2 H (40.0-70.0) % Sodium 130 L (137-145) mmol/L Chloride 89.3 L (98-107) mmol/L BUN 34 H (9-20) mg/dL Creatinine 2.1 H (0.8-1.5) mg/dL Glucose 578 H* (75-100) mg/dL POC Glucose > 500 H (70-105) Hemoglobin A1c (4-6) % Total Creatine Kinase (55-170) units/L C-Reactive Protein (0.00-1.30) mg/dL Total Protein 8.8 H (6.3-8.2) g/dL Albumin 2.7 L (3.9-5) g/dL 12/17/18 12/17/18 12/17/18 Range/Units 17:57 20:11 20:17 Hgb (11.8-15.2) gm/dl Hct (35.5-45.6) % MCV (84-94) fl MCH (28-32) pg RDW (13.2-15.2) % Plt Count (140-440) K/mm3 Seg Neutrophils % (40.0-70.0) % Sodium 135 L (137-145) mmol/L Chloride 95.7 L (98-107) mmol/L BUN 32 H (9-20) mg/dL Creatinine 2.0 H (0.8-1.5) mg/dL Glucose 255 H (75-100) mg/dL POC Glucose (70-105) Hemoglobin A1c 16.4 H (4-6) % Total Creatine Kinase 52 L (55-170) units/L C-Reactive Protein 16.20 H (0.00-1.30) mg/dL Total Protein (6.3-8.2) g/dL Albumin (3.9-5) g/dL 12/17/18 12/18/18 12/18/18 Range/Units 22:43 05:39 07:56 Hgb (11.8-15.2) gm/dl Hct (35.5-45.6) % MCV (84-94) fl MCH (28-32) pg RDW (13.2-15.2) % Plt Count (140-440) K/mm3 Seg Neutrophils % (40.0-70.0) % Sodium (137-145) mmol/L Chloride (98-107) mmol/L BUN 25 H (9-20) mg/dL Creatinine 1.7 H (0.8-1.5) mg/dL Glucose 174 H (75-100) mg/dL POC Glucose 228 H 162 H (70-105) Hemoglobin A1c (4-6) % Total Creatine Kinase (55-170) units/L C-Reactive Protein (0.00-1.30) mg/dL Total Protein (6.3-8.2) g/dL Albumin (3.9-5) g/dL 12/18/18 Range/Units 11:07 Hgb (11.8-15.2) gm/dl Hct (35.5-45.6) % MCV (84-94) fl MCH (28-32) pg RDW (13.2-15.2) % Plt Count (140-440) K/mm3 Seg Neutrophils % (40.0-70.0) % Sodium (137-145) mmol/L Chloride (98-107) mmol/L BUN (9-20) mg/dL Creatinine (0.8-1.5) mg/dL Glucose (75-100) mg/dL POC Glucose 266 H (70-105) Hemoglobin A1c (4-6) % Total Creatine Kinase (55-170) units/L C-Reactive Protein (0.00-1.30) mg/dL Total Protein (6.3-8.2) g/dL Albumin (3.9-5) g/dL Diabetes panel 12/17/18 12/17/18 12/17/18 Range/Units 17:57 20:11 20:17 Sodium 130 L 135 L (137-145) mmol/L Potassium 4.9 4.2 (3.6-5.0) mmol/L Chloride 89.3 L 95.7 L (98-107) mmol/L Carbon Dioxide 29 27 (22-30) mmol/L BUN 34 H 32 H (9-20) mg/dL Creatinine 2.1 H 2.0 H (0.8-1.5) mg/dL Glucose 578 H* 255 H (75-100) mg/dL Hemoglobin A1c 16.4 H (4-6) % Calcium 9.2 8.9 (8.4-10.2) mg/dL AST 9 (5-40) units/L ALT 8 (7-56) units/L Alkaline Phosphatase 101 (35-129) units/L Total Protein 8.8 H (6.3-8.2) g/dL Albumin 2.7 L (3.9-5) g/dL 12/18/18 Range/Units 05:39 Sodium 139 (137-145) mmol/L Potassium 4.2 (3.6-5.0) mmol/L Chloride 102.8 (98-107) mmol/L Carbon Dioxide 25 (22-30) mmol/L BUN 25 H (9-20) mg/dL Creatinine 1.7 H (0.8-1.5) mg/dL Glucose 174 H (75-100) mg/dL Hemoglobin A1c (4-6) % Calcium 8.7 (8.4-10.2) mg/dL AST (5-40) units/L ALT (7-56) units/L Alkaline Phosphatase (35-129) units/L Total Protein (6.3-8.2) g/dL Albumin (3.9-5) g/dL Calcium panel 12/17/18 12/17/18 12/17/18 Range/Units 17:57 20:11 20:17 Calcium 9.2 8.9 (8.4-10.2) mg/dL Phosphorus 4.00 (2.5-4.5) mg/dL Albumin 2.7 L (3.9-5) g/dL 12/18/18 Range/Units 05:39 Calcium 8.7 (8.4-10.2) mg/dL Phosphorus (2.5-4.5) mg/dL Albumin (3.9-5) g/dL Pituitary panel 12/17/18 12/17/18 12/18/18 Range/Units 17:57 20:11 05:39 Sodium 130 L 135 L 139 (137-145) mmol/L Potassium 4.9 4.2 4.2 (3.6-5.0) mmol/L Chloride 89.3 L 95.7 L 102.8 (98-107) mmol/L Carbon Dioxide 29 27 25 (22-30) mmol/L BUN 34 H 32 H 25 H (9-20) mg/dL Creatinine 2.1 H 2.0 H 1.7 H (0.8-1.5) mg/dL Glucose 578 H* 255 H 174 H (75-100) mg/dL Calcium 9.2 8.9 8.7 (8.4-10.2) mg/dL Adrenal panel 12/17/18 12/17/18 12/18/18 Range/Units 17:57 20:11 05:39 Sodium 130 L 135 L 139 (137-145) mmol/L Potassium 4.9 4.2 4.2 (3.6-5.0) mmol/L Chloride 89.3 L 95.7 L 102.8 (98-107) mmol/L Carbon Dioxide 29 27 25 (22-30) mmol/L BUN 34 H 32 H 25 H (9-20) mg/dL Creatinine 2.1 H 2.0 H 1.7 H (0.8-1.5) mg/dL Glucose 578 H* 255 H 174 H (75-100) mg/dL Calcium 9.2 8.9 8.7 (8.4-10.2) mg/dL Total Bilirubin 0.20 (0.1-1.2) mg/dL AST 9 (5-40) units/L ALT 8 (7-56) units/L Alkaline Phosphatase 101 (35-129) units/L Total Protein 8.8 H (6.3-8.2) g/dL Albumin 2.7 L (3.9-5) g/dL - Imaging Additional studies: CT of the LLE yesterday revealed osteomyelitis of the left 1st distal phalanx and osteomyelitis of the distal aspect of the left 1st proximal phalanx. Assessment and Plan - Patient Problems (1) Chronic osteomyelitis involving left ankle and foot Current Visit: Yes Status: Acute Plan to address problem: 1) Recommend ID consult 2) HBOT vs left great toe amputation; I will discuss these options with the pt. He will likely opt for HBOT. 3) No surgical intervention (except for the possible amputation) is indicated at this time.
[2018-12-18] MEDS: SODIUM CHLORIDE FLUSH SYRINGE 10 ML IV SCH (22:00)
[2018-12-18] MEDS: LANTUS SUB-Q SCH (22:44)
[2018-12-19] MEDS: NACL 0.9% 1000 ML 1,000 ML IV SCH ×2 (02:50→15:21)
[2018-12-19] MEDS: ZOSYN/NS 4.5GM/100ML 4.5 GM/100 ML VIAL IV SCH ×3 (02:55→18:03)
[2018-12-19 07:01] LABS: Hematocrit 24.2 % (35.5-45.6); Hemoglobin 7.9 gm/dl (11.8-15.2); Mean Corpuscular HGB Conc 33 % (32-34); Mean Corpuscular Volume 77 fl (84-94); Platelet Count 699 K/mm3 (140-440); Red Blood Count 3.14 M/mm3 (3.65-5.03); Red Cell Distribution Width 12.8 % (13.2-15.2)
[2018-12-19 07:20] LABS: BUN/Creatinine Ratio 10; Blood Urea Nitrogen 14 mg/dL (9-20); Calcium 8.2 mg/dL (8.4-10.2); Hemolysis Index 0
[2018-12-19] MEDS: HEPARIN SUB-Q SCH ×2 (07:45→15:20)
[2018-12-19] MEDS: HumaLOG SUB-Q SCH ×3 (08:25→18:08)
--- NOTE | 2018-12-19 10:10 | Progress Note ---
Assessment and Plan - Patient Problems (1) Chronic osteomyelitis involving left ankle and foot Current Visit: Yes Status: Acute Plan to address problem: 1) Enedelia (Wound Care nurse) and I had a long d/w the pt. He does not feel that HBOT is a viable option b/o "I have enough trouble just managing my diabetes." I told him that, in my opinion, amputation was the only viable option. Pt was told that he can come [facility] week to be scheduled for his surgery. He then stated that he was not sure if he could make it to the [facility]. His surgery is not emergent. I again informed the pt that if he did not get his diabetes under control, he would probably suffer the complications of leg amputation, CKD with HD, blindness, & early CAD/WV/CVA with premature . He verbalized his understanding of this. Pt also gave Enedelia permission to discuss his medical situation with his father. In my opinion, pt is extremely non-compliant and he will suffer the above complications. He can be discharged from my perspective. Subjective Date of service: 12/19/18 Patient Reports: Positive: no new complaints Objective Vital Signs - 12hr 12/18/18 12/19/18 12/19/18 23:29 05:42 09:27 Temperature 99.0 F 98.3 F Pulse Rate 101 H 83 Pulse Rate [ 97 H Right Radial] Respiratory 20 20 20 Rate Blood Pressure 156/92 Blood Pressure 160/101 [Right] O2 Sat by Pulse 96 96 Oximetry - Integumentary other (No change in left foot exam.) - Labs 12/19/18 06:42 12/19/18 06:42 Diabetes panel 12/19/18 Range/Units 06:42 Sodium 142 (137-145) mmol/L Potassium 3.7 (3.6-5.0) mmol/L Chloride 106.4 (98-107) mmol/L Carbon Dioxide 26 (22-30) mmol/L BUN 14 (9-20) mg/dL Creatinine 1.4 (0.8-1.5) mg/dL Glucose 95 (75-100) mg/dL Calcium 8.2 L (8.4-10.2) mg/dL Calcium panel 12/19/18 Range/Units 06:42 Calcium 8.2 L (8.4-10.2) mg/dL Pituitary panel 12/19/18 Range/Units 06:42 Sodium 142 (137-145) mmol/L Potassium 3.7 (3.6-5.0) mmol/L Chloride 106.4 (98-107) mmol/L Carbon Dioxide 26 (22-30) mmol/L BUN 14 (9-20) mg/dL Creatinine 1.4 (0.8-1.5) mg/dL Glucose 95 (75-100) mg/dL Calcium 8.2 L (8.4-10.2) mg/dL Adrenal panel 12/19/18 Range/Units 06:42 Sodium 142 (137-145) mmol/L Potassium 3.7 (3.6-5.0) mmol/L Chloride 106.4 (98-107) mmol/L Carbon Dioxide 26 (22-30) mmol/L BUN 14 (9-20) mg/dL Creatinine 1.4 (0.8-1.5) mg/dL Glucose 95 (75-100) mg/dL Calcium 8.2 L (8.4-10.2) mg/dL
[2018-12-19] MEDS: VANCOMYCIN 2,000 MG in NACL 0.9% 500 ML 500 ML IV SCH (11:15)
[2018-12-19] MEDS: LANTUS SUB-Q SCH ×2 (11:15→11:23)
[2018-12-19] MEDS: SODIUM CHLORIDE FLUSH SYRINGE 10 ML IV SCH (11:24)
--- NOTE | 2018-12-19 12:57 | Consultation ---
History of Present Illness - Reason for Consult Consult date: 12/19/18 Chronic osteomyelitis, left foot Requesting physician: LISA SCHRADER - History of Present Illness The patient is a 28-year-old male with diabetes mellitus, uncontrolled with chronic left foot osteomyelitis presented to the hospital on 12/17/2018 with worsening of his left foot ulcer. He follows up in the wound care clinic by Dr. Aguirre. Patient apparently had been running high blood sugars at home and hence he called the EMS. The EMS noted his toe to be darker in color and hence recommended him to come to the emergency room. Patient denies any fevers or chills. Denies any nausea, vomiting. He was empirically started on IV vancomycin and Zosyn. Infectious diseases was consulted for antibiotic recommendations. Patient was seen by Dr. Aguirre this admission, patient states he is scheduled for an amputation on 12/25/2018. He currently feels well part from intermittent sharp left foot pain. Review of Systems: General: no fevers,chills or rigors HEENT: no new visual disturbance Respiratory: No cough, sputum, hemoptysis or shortness of breath Cardiovascular: No chest pain, syncope Gastrointestinal: No nausea, vomiting or diarrhea Genitourinary: No dysuria or hematuria Musculoskeletal: No new or worsening neck pain or back pain Neurologic: No headaches, seizures Hematologic: No easy bruising or bleeding Endocrine: No night sweats or acute weight loss Skin: negative for rash, jaundice Psychiatric: No suicidal or homicidal ideation Past History Past Medical History: diabetes, other (left foot osteomyelitis) Past Surgical History: Other (left foot surgery) Social history: other (he admits to occasional alcohol use. He denies tobacco or illicit drug use) Family history: diabetes (Mother) Medications and Allergies Allergies Allergy/AdvReac Type Severity Reaction Status Date / Time No Known Allergies Allergy Unverified 02/24/18 18:11 Home Medications Medication Instructions Recorded Confirmed Last Taken Type Amoxicillin/Potassium Clav 1 each PO BID 14 Days tablet 03/01/18 Unknown Rx [Augmentin 875-125 Tablet] HYDROcodone/APAP 5-325 [[place] 1 each PO Q6H PRN #12 tablet 03/01/18 Unknown Rx 5-325 mg TAB] Insulin Glargine [Lantus VIAL] 16 units SUB-Q QHS #1 vial 03/01/18 Unknown Rx Amoxicillin/K Clav Tab [Augmentin 1 tab PO Q12HR 12/17/18 12/17/18 Unknown History 875 mg] HYDROcodone/APAP 5-325 [[place] 1 each PO Q6HR PRN 12/17/18 12/17/18 Unknown History 5/325] Insulin Aspart [Novolog] 20 units SQ TID 12/17/18 12/17/18 Unknown History Insulin Glargine,Hum.rec.anlog 20 unit SQ QDAY 12/17/18 12/17/18 Unknown History [Basaglar Kwikpen U-100] Metformin HCl [Fortamet ER] 1,000 mg PO QDAY 12/17/18 12/17/18 Unknown History Active Meds: Active Medications Acetaminophen (Tylenol) 650 mg PO Q4H PRN PRN Reason: Pain MILD(1-3)/Fever >100.5/WILSON Acetaminophen/Hydrocodone Bitart ([place] 5/325) 2 each PO Q6H PRN PRN Reason: Pain, Moderate (4-6) Dextrose (D50w (25gm) Syringe) 0 ml IV PRN PRN PRN Reason: Hypoglycemia Heparin Sodium (Porcine) (Heparin) 5,000 unit SUB-Q Q8HR [facility] Last Admin: 12/19/18 07:45 Dose: 5,000 unit Documented by: Piperacillin Sod/Tazobactam Sod (Zosyn/Ns 4.5gm/100ml) 4.5 gm in 100 mls @ 200 mls/hr IV Q8H [facility] Last Admin: 12/19/18 09:18 Dose: 200 mls/hr Documented by: Sodium Chloride (Nacl 0.9% 1000 Ml) 1,000 mls @ 125 mls/hr IV DIRECT [facility] Last Admin: 12/19/18 02:50 Dose: 125 mls/hr Documented by: Vancomycin HCl 2,000 mg/ (Sodium Chloride) 540 mls @ 250 mls/hr IV Q24HR [facility] Last Admin: 12/19/18 11:15 Dose: 250 mls/hr Documented by: Insulin Glargine (Lantus) 25 units SUB-Q BID [facility] Last Admin: 12/19/18 11:23 Dose: 25 units Documented by: Insulin Human Lispro (Humalog) 0 unit SUB-Q ACHS [facility]; Protocol Last Admin: 12/19/18 12:28 Dose: 3 unit Documented by: Morphine Sulfate (Morphine) 2 mg IV Q4H PRN PRN Reason: Pain, Moderate (4-6) Ondansetron HCl (Zofran) 4 mg IV Q8H PRN PRN Reason: Nausea And Vomiting Sodium Chloride (Sodium Chloride Flush Syringe 10 Ml) 10 ml IV BID [facility] Last Admin: 12/19/18 11:24 Dose: 10 ml Documented by: Physical Examination - Physical Exam Narrative exam: Physical Exam: Constitutional: Alert, cooperative. No acute distress Head, Ears, Nose: Normocephalic, atraumatic. External ears, nose normal Eyes: Conjunctivae/corneas clear. No icterus. No ptosis. Neck: Supple, no meningeal signs Oral: mucosa moist, no thrush Cardiovascular: S1, S2 normal. Respiratory: Good air entry, clear to auscultation bilaterally GI: Soft, non-tender; bowel sounds normal. No peritoneal signs Musculoskeletal: No pedal edema, no cyanosis. Left great toe with ulceration, plantar surface with another wound. Right foot great toe wiht superficial wound with dressing. Skin: No rash or abscess Hem/Lymphatic: No palpable cervical or supraclavicular nodes. No lymphangitis Psych: Mood ok. Affect normal Neurological: Awake, alert, oriented. No gross abnormality - Constitutional Vitals: Vital Signs Temp Pulse Resp BP Pulse Ox 98.1 F 86 20 142/77 95 12/19/18 12:08 12/19/18 12:08 12/19/18 12:08 12/19/18 12:08 12/19/18 12:08 Temperature -Last 24 Hours Temperature 98.1 F Temperature 98.3 F Temperature 99.0 F Results - Labs CBC & Chem 7: 12/19/18 06:42 12/19/18 06:42 Labs: Abnormal lab results 12/18/18 12/18/18 12/19/18 Range/Units 16:40 21:20 06:42 RBC 3.14 L (3.65-5.03) M/mm3 Hgb 7.9 L (11.8-15.2) gm/dl Hct 24.2 L (35.5-45.6) % MCV 77 L (84-94) fl MCH 25 L (28-32) pg RDW 12.8 L (13.2-15.2) % Plt Count 699 H (140-440) K/mm3 POC Glucose 220 H 108 H (70-105) Calcium (8.4-10.2) mg/dL 12/19/18 12/19/18 Range/Units 06:42 10:55 RBC (3.65-5.03) M/mm3 Hgb (11.8-15.2) gm/dl Hct (35.5-45.6) % MCV (84-94) fl MCH (28-32) pg RDW (13.2-15.2) % Plt Count (140-440) K/mm3 POC Glucose 204 H (70-105) Calcium 8.2 L (8.4-10.2) mg/dL Assessment and Plan Cultures: 12/17/2018 blood culture: No growth in 24 hours 12/17/2018 urine culture: mixed growth Previous cultures reviewed, patient has grown MSSA and Streptococcus anginosus A/P: 28-year-old male with diabetes mellitus, uncontrolled with chronic left foot osteomyelitis presented to the hospital on 12/17/2018 with worsening of his left foot ulcer. 1) Chronic left foot great toe osteomyelitis: has had previous wound debridements. Known chronic osteomyelitis, follows up with wound care. Evaluated by Dr. Aguirre, scheduled for amputation as outpatient on 12/25/2018. No fever, no leucocytosis, mild cellulitis of LLE. CT images reviewed, suggestive of OM of great toe and ?mild cellulitis. Based on previous wound cultures (MSSA, Strep anginosus), will recommend PO Keflex 500 mg QID x 10 days. 2) DM-2 uncontrolled: non compliant. Remains at high risk of treatment failure. Recs: PO Keflex 500 mg QID x 10 days ID clinic follow up PRN D/W Dr. Schrader. Real Meehan MD [facility] C: [phone] O: [phone] F: [phone]
--- NOTE | 2018-12-19 14:47 | Discharge Summary ---
Providers - Providers Date of Admission: 12/17/18 19:51 Date of discharge: 12/19/18 Attending physician: LISA URIARTE 12/17/18 17:56 Consult to Wound/ET Nurse [CONS] Urgent Reason For Exam: wound eval 12/18/18 10:41 Consult to Physician [CONS] Routine Comment: Consulting Provider: JACKY AGUIRRE Physician Instructions: Reason For Exam: diabetic foot ulcer,chronic osteo 12/18/18 15:21 Consult to Physician [CONS] Routine Comment: Consulting Provider: NI MEEHAN Physician Instructions: Reason For Exam: diabetic foot ulcer, history of osteomyelitis 12/19/18 12:22 Consult to Case Management [CONS] Routine Services Needed at Discharge: Adult Education Teacher Notified:: copy left for cm Comment:: dc planning Primary care physician: CORINNE REN Hospitalization Condition: Fair Hospital course: Patient is 28 yo with chronic left foot ulcer, chronic osteomyelitis left foot diabetes, medical non complianc. He presented wth more prain and drainage from ulcer left foot. He was evaluated in ED. he was found to have glucose 578, normal bicarb, GERHARD with Cr 2.1. He was diagnosed with GERHARD, hyperglycemic hyperosmolar syndrome, infected left foot ulcer. Patient was started on Insulin, iv fluids, iv Antibiotics and admitted. He was evaluated by Surgeon and ID Physician. Blood glucose normalized, GERHARD resolved. Dr. Aguirre, Surgeon recommended outpatient follow uop and Dr. Meehan recommended Keflex 500mg q6h X 10 days. he was then discharged home. Sepsis was ruled out. Total time spent on discharge, 32 mins Disposition: [id number] HOME UNDER HOME HLTH - Discharge Diagnoses (1) Hyponatremia Status: Acute (2) GERHARD (acute kidney injury) Status: Acute (3) Acute hyperglycemia Status: Acute (4) Cellulitis of foot, left Status: Acute (5) Chronic osteomyelitis involving left ankle and foot Status: Acute (6) Dehydration Status: Acute (7) Diabetic foot ulcers Status: Acute Qualifiers: Laterality: left Non-pressure ulcer stage: with fat layer exposed Core Measure Documentation - Palliative Care Palliative Care/ Comfort Measures: Not Applicable - Core Measures Any of the following diagnoses?: none Exam - Constitutional Vitals: Temp Pulse Resp BP Pulse Ox 98.1 F 86 20 142/77 95 12/19/18 12:08 12/19/18 12:08 12/19/18 12:08 12/19/18 12:08 12/19/18 12:08 Plan Activity: advance as tolerated Diet: low fat, low cholesterol, low salt, diabetic Additional Instructions: 1.Follow up with PCP in 2-3 days. 2.Follow up with Dr. Aguirre in 3-5 days. 3.Follow up with SHAYLA Huerta in 1-2 weeks Prescriptions: Cephalexin [Keflex] 500 mg PO Q6H #40 capsule Insulin NPH Hum/Reg Insulin Hm [Novolin 70-30 Flexpen] 20 unit SQ BID #1 insuln.pen
[2018-12-19 19:22] VITALS: BP 162/95
== END 2018-12-19 18:50 | disposition home health service (06) | DRG 871 ==
LOC: ED 16:11 → CC1 19:51 → 3A 12-18 07:58
PROVIDERS: ADMIT Internal Medicine; ATTEND Internal Medicine
DX: A41.9 Sepsis, unspecified organism (principal); E11.10 Type 2 diabetes mellitus with ketoacidosis without coma; N17.9 Acute kidney failure, unspecified; L03.116 Cellulitis of left lower limb; M86.672 Other chronic osteomyelitis, left ankle and foot; L97.429 Non-pressure chronic ulcer of left heel and midfoot with unspecified severity; E11.621 Type 2 diabetes mellitus with foot ulcer; E86.0 Dehydration; S91.302A Unspecified open wound, left foot, initial encounter; S91.301A Unspecified open wound, right foot, initial encounter; X58.XXXA Exposure to other specified factors, initial encounter; Y93.89 Activity, other specified; Y92.89 Other specified places as the place of occurrence of the external cause; Y99.8 Other external cause status; E11.69 Type 2 diabetes mellitus with other specified complication; Z91.14 Patient's other noncompliance with medication regimen; Z79.4 Long term (current) use of insulin
CPT/HCPCS: 36415; 80048; 80053; 81001; 82140; 82550; 82805; 82962; 83036; 83735; 84100; 85025; 85027; 85610; 85652; 85730; 86140; 87040; 87086; 93005; 93010; G0378; J1644; J1815; J2543; J3370; J7030; J7040

== ENCOUNTER 2018-12-25 09:28 | Outpatient (CLI) | payer MEDICARE ==
[2018-12-25] MEDS ORDERED: XYLOCAINE TOPICAL 4% TP ONE (09:47)
[2018-12-25] MEDS ORDERED: AD OINTMENT TP SCH (10:00)
== END 2018-12-25 09:29 | disposition home or self-care (01) ==
LOC: WOUND 09:28
PROVIDERS: ATTEND Surgery
DX: E11.621 Type 2 diabetes mellitus with foot ulcer (principal); L97.522 Non-pressure chronic ulcer of other part of left foot with fat layer exposed; L97.512 Non-pressure chronic ulcer of other part of right foot with fat layer exposed; R06.89 Other abnormalities of breathing
CPT/HCPCS: 11042; 36415; 83880; G0463; 99215; A6250

== ENCOUNTER 2019-01-07 13:20 | Outpatient (CLI) | payer MEDICARE ==
--- NOTE | 2019-01-08 14:55 | Magnetic Resonance Report ---
PROCEDURE: MR NAIR NONJOINT LT WO CON TECHNIQUE: Standard pulse sequences were utilized involving the left foot without the use of IV cont rast. HISTORY: LEFT FOOT COMPARISONS: CT scan of the feet 12/17/2018 FINDINGS: There is abnormal decreased T1 signal in the proximal phalanx of the great toe greatest distally. Ero sions appear to be present. This shows increased T2 signal. The distal phalanx shows diffuse decrease d T1 signal, increased T2 signal and shows severe erosive and reabsorption changes. Diffuse soft tiss ue edema is present. The appearance suggest osteomyelitis involving the proximal and distal phalanx o f the great toe. Mild osteoarthritic changes are seen in the MTP joint of the great toe. Mild skin thickening visualized involving the second toe. There is mild decreased T1 signal, increase d T2 signal in the proximal phalanx of the second toe. Abnormal increased signal is seen in the distal end of the third metatarsal and proximal end of the p roximal phalanx of the third toe. There is localized edema involving the third toe at the MTP joint a nd also in the proximal end of the toe. There appears to be dislocation of the proximal phalanx of the fourth toe displaced proximally. There is increased T2 signal, decreased T1 signal in the proximal phalanx of the fourth toe. This could be edema related to the dislocation/trauma. I cannot exclude osteomyelitis. There is diffuse skin thick ening and subcutaneous edema in the vicinity. Abnormal increased T2 signal seen distal end fifth metatarsal, decreased T1 signal. The proximal phal anx of the fifth toe appears to be angulated sharply medially. I cannot exclude subluxation. There is mild increased T2 signal, decreased T1 signal in the proximal phalanx of the fifth toe. This is also seen diffusely in the distal phalanx of the fifth toe. There is decreased T1 signal, increased T2 signal and distention of the flexor pollicis longus tendon sheath consistent with tenosynovitis. IMPRESSION: Abnormal appearance proximal and distal phalanx of the great toe suggesting osteomyelitis. Diffuse so ft tissue swelling seen surrounding the great toe suggesting cellulitis. Cellulitis also appears to b e present involving the distal and of the foot extending to the remaining toes as described above. There appears to be dislocation of the proximal phalanx of the fourth toe located slightly proximal t o the MTP joint space. Abnormal signal is seen in the proximal phalanx of the fourth toe as described . This could be related to trauma. I cannot exclude osteomyelitis. Abnormal angulation proximal phalanx fifth toe. This may be subluxed medially. Abnormal signal seen i n the proximal and distal phalanx of the fifth toe suggest osteomyelitis. Abnormal signal proximal phalanx second toe suggesting osteomyelitis. Tenosynovitis flexor hallucis longus tendon sheath This document is electronically signed by Sony Painting MD., Jan 08 2019 02:54:20 PM ET
== END 2019-01-07 13:21 | disposition home or self-care (01) ==
LOC: MRI 13:20
PROVIDERS: ATTEND Surgery
DX: M65.872 Other synovitis and tenosynovitis, left ankle and foot (principal); M19.072 Primary osteoarthritis, left ankle and foot; E66.9 Obesity, unspecified

== ENCOUNTER 2019-01-23 09:44 | Outpatient (CLI) | payer MEDICARE ==
[2019-01-23] MEDS ORDERED: AD OINTMENT TP PRN (10:30)
[2019-01-23] MEDS ORDERED: SILVER NITRATE TP ONE (10:40)
[2019-01-23] MEDS ORDERED: XYLOCAINE TOPICAL 4% TP ONE (10:40)
== END 2019-01-23 09:45 | disposition home or self-care (01) ==
LOC: WOUND 09:44
PROVIDERS: ATTEND Surgery
DX: E11.621 Type 2 diabetes mellitus with foot ulcer (principal); L97.522 Non-pressure chronic ulcer of other part of left foot with fat layer exposed; L97.512 Non-pressure chronic ulcer of other part of right foot with fat layer exposed; R06.89 Other abnormalities of breathing